=== PATIENT | female | born 1935 | race Caucasian/White ===

== ENCOUNTER 2016-06-02 10:20 | Emergency (ER) | payer OTHER ==
[~2016-06-02] VITALS: Ht 152.4 cm; Wt 79.3 kg
[~2016-06-02 10:20] MED LIST: ALPR-138 PO; ASPI81TA82 PO; ATEN1TAB73 PO; ATOR40TA PO; COUM2TAB PO; FOSA70TA PO; NITR0.4S SL; PERC5TAB12 PO; ULTR50TA PO
[2016-06-02 10:36] VITALS: PULSE 74; RESP 16; TEMP 98.4; O2SAT 97
[2016-06-02] MEDS ORDERED: ATEN25TA PO (11:00)
[2016-06-02] MEDS ORDERED: ASPI81CH CHEW (11:00)
[2016-06-02] MEDS ORDERED: FOSA70TA PO (11:00)
[2016-06-02] MEDS ORDERED: ALPR0.25 PO (11:00)
[2016-06-02] MEDS ORDERED: WARF4TAB51 PO (11:00)
[2016-06-02] MEDS ORDERED: ATOR40TA16 PO (11:00)
[2016-06-02] MEDS ORDERED: CALTTAB PO (11:02)
--- NOTE | 2016-06-02 11:09 | PD ---
HPI Chief Complaint: Fall Time Seen by Provider: 10:49 Travel History International Travel<30 days: No Contact w/Intl Traveler<30days: No Traveled to known affect area: No History of Present Illness HPI This patient complains of wrist pain. One hour ago she tripped and fell. She caught herself on a left outstretched wrist. Worse with movement. She also struck her head on the carpet. But she has no LOC and no headache and no neck pain. She does take Coumadin but is not having any headache or neurologic symptoms. PFSH Past Medical History Hx Anticoagulant Therapy: Yes (coumadin) Anxiety: Yes Cardiovascular Problems: Yes (htn on meds, stents x 2) High Cholesterol: Yes Cerebrovascular Accident: Yes (x3) Coronary Artery Disease: Yes Diminished Hearing: No GERD: Yes Hypertension: Yes Immunizations Current: Yes (H1N1) Renal Failure: Yes (STAGE III CKD) Tetanus Vaccination: Unknown ?: Not Past Surgical History Appendectomy: Yes Cardiac Surgery: Yes (stents x 2) Hysterectomy: Yes Social History Alcohol Use: No Tobacco Use: No Substance Use: No Allergies-Medications (Allergen,Severity, Reaction): Coded Allergies: No Known Allergies (Verified , 06/02/16) Reported Meds & Prescriptions Reported Meds & Active Scripts Active Reported Caltrate 600+D (Calcium Carbonate-Cholecalciferol) 600-800 Mg-Unit Tab 1 Tab PO BID Atorvastatin (Atorvastatin Calcium) 40 Mg Tab 40 Mg PO HS Atenolol 25 Mg Tab 25 Mg PO BID Aspirin 81 Mg Chew 81 Mg CHEW DAILY Alprazolam 0.25 Mg Tab 0.25 Mg PO Q8H PRN Fosamax (Alendronate Sodium) 70 Mg Tab 70 Mg PO Q7D Warfarin 2 Mg Tab 2 Mg PO DAILY Review of Systems General / Constitutional: No: Fever HENT: No: Headaches Cardiovascular: No: Chest Pain or Discomfort Respiratory: No: Cough Physical Exam Narrative NEUROLOGICAL: Awake and alert. Pupils are equal round and reactive. Motor and sensory grossly within normal limits. Five out of 5 muscle strength in all muscle groups. Normal speech. SKIN: Inspection shows no rash or ulcers. Palpation shows no induration or nodules. Head: No abrasion or contusion seen. Has some dried blood in the nares Left wrist: Some minor swelling and tenderness at the left wrist. Neurovascularly intact. No open wound Data Data Last Documented VS Vital Signs Date Time Temp Pulse Resp B/P Pulse Ox O2 Delivery O2 Flow Rate FiO2 06/02/16 10:43 16 97 Room Air 06/02/16 10:36 98.4 74 Orders Wrist, Complete (Dru2cns) (06/02/16 ) Splint Or Brace Apply/Monitor (06/02/16 11:49) MDM Medical Decision Making Medical Screen Exam Complete: Yes Emergency Medical Condition: Yes Medical Record Reviewed: Yes Differential Diagnosis Wrist fracture, wrist dislocation, contusion Narrative Course I have reviewed the patient's electronic medical record. I reviewed her left wrist x-rays which show a nondisplaced distal radius fracture. I placed her in a left sugar tong splint and sling She will ice and elevate and follow with radiologist Pain medicine written Patient is neurologically intact without headache. No indication for emergent CT scanning. We discussed head injury precautions which she will follow. Diagnosis Primary Impression: Distal radius fracture, left Qualified Code: S52.532A - Closed Colles' fracture of left radius, initial encounter Additional Instructions: The patient was advised to follow up with orthopedist and return if they worsen. The patient was warned about potential sedation for the medications they will receive on prescription. Ice and elevate left wrist and wear splint Med/Other Pt SpecificInfo: Prescription(s) given Scripts Oxycodone-Acetaminophen (Percocet)5-325 mg Tab1 Tab PO Q6H PRN (PAIN) #20 TAB Ref 0 Prov:Zachariah Beckman MD 06/02/16 Disposition: 01 DISCHARGE HOME Condition: Stable Zachariah Beckman MD Jun 02, 2016 11:09
--- NOTE | 2016-06-02 11:41 | RADHPO ---
EXAM DATE/TIME: 06/02/2016 11:17 [facility] COMPARISON: KNEE LEFT LTD (1 OR 2VWS), October 18, 2014, 21:45. INDICATIONS : Fell. Complains of pain on lateral side of left wrist. MEDICAL HISTORY : None. SURGICAL HISTORY : None. ENCOUNTER: Initial ACUITY: 1 day PAIN SCORE: 7/10 LOCATION: Left wrist FINDINGS: The examination demonstrates a nondisplaced fracture through the distal aspect of the right radius. T here is no intra-articular extension. The carpus is intact. There degenerative changes in the carpal/metacarpal joint at the base of the thumb. CONCLUSION: 1. Nondisplaced fracture in the distal left radius. Dawson Boyer MD on June 02, 2016 at 11:38 Board Certified Radiologist. This report was verified electronically.
[2016-06-02] MEDS ORDERED: PERC5TAB12 PO (11:51)
[2016-06-02 12:07] VITALS: BP 167/71
== END 2016-06-02 12:26 | disposition home or self-care (01) ==
LOC: PHED 10:20
DX: S52.532A Colles' fracture of left radius, initial encounter for closed fracture (principal); W01.0XXA Fall on same level from slipping, tripping and stumbling without subsequent striking against object, initial encounter
CPT/HCPCS: 29125; 73110

== ENCOUNTER 2017-01-24 18:47 | Emergency (ER) | payer OTHER ==
[~2017-01-24] VITALS: Ht 152.4 cm; Wt 77.0 kg
[~2017-01-24 18:47] MED LIST changes: -ALPR-138 PO; +ALPR0.25 PO; +ASPI81CH CHEW; -ASPI81TA82 PO; -ATEN1TAB73 PO; +ATEN25TA PO; -ATOR40TA PO; +ATOR40TA16 PO; +CALTTAB PO; -COUM2TAB PO; -NITR0.4S SL; -ULTR50TA PO; +WARF4TAB51 PO
[2017-01-24 18:52] VITALS: PULSE 66; RESP 16; TEMP 98.4; O2SAT 95
[2017-01-24] MEDS ORDERED: MULT-154 PO (20:49)
[2017-01-24] MEDS ORDERED: CALC1TAB87 PO (20:49)
[2017-01-24] MEDS ORDERED: TRAM-388 PO (20:49)
[2017-01-24] MEDS ORDERED: TURM500C4 PO (20:50)
[2017-01-24 20:58] VITALS: BP 184/83; PULSE 67; RESP 16; O2SAT 94
--- NOTE | 2017-01-24 21:14 | PD ---
HPI Chief Complaint: Headache Time Seen by Provider: 20:57 Travel History International Travel<30 days: No Contact w/Intl Traveler<30days: No Traveled to known affect area: No History of Present Illness HPI 81-year-old female complains of headache. Patient states that headache started about 2 days ago and has been persistent since then. Patient states headache aching headache diffuse over the head. Patient denies any visual change. Patient denies any neck pain. Patient denies any chest pain or shortness of breath. Patient denies abdominal pain. Patient denies any nausea vomiting diarrhea. Patient's daughter states the patient has been more confused for the past 2 days. Patient has history of hypertension, status post CVA, borderline diabetes. Patient is taking her medications herself daily. Patient's daughter is not sure patient is taking the medications appropriately. Patient has right- sided facial weakness after the previous stroke. Patient's daughter states that is not new now. Patient's daughter states that no change in medication recently. Patient denies any fever chills. Patient denies any coughing congestion. PFSH Past Medical History Hx Anticoagulant Therapy: Yes (coumadin) Anemia: Yes Arthritis: Yes Anxiety: Yes Cardiac Catheterization: Yes Cardiovascular Problems: Yes (htn on meds, stents x 2) High Cholesterol: Yes Cerebrovascular Accident: Yes (x3) Coronary Artery Disease: Yes Diabetes: Yes (BORDERLINE, NO MEDS) Patient Takes Glucophage: No Diminished Hearing: No GERD: Yes Hypertension: Yes Musculoskeletal: Yes (osteoporosis) Immunizations Current: Yes (H1N1) Renal Failure: Yes (STAGE III CKD) Tetanus Vaccination: Unknown ?: Not Menopausal: Yes : 6 Para: 5 Miscarriage: 1 Tubal Ligation: Yes (?) Past Surgical History Appendectomy: Yes Cardiac Surgery: Yes (stents x 2) Coronary Stent: Yes (X2) Eye Surgery: Yes (CATARACT) Hysterectomy: Yes Tonsillectomy: Yes Social History Alcohol Use: No Tobacco Use: No Substance Use: No Allergies-Medications (Allergen,Severity, Reaction): Coded Allergies: No Known Allergies (Verified , 01/24/17) Reported Meds & Prescriptions Reported Meds & Active Scripts Active Reported Turmeric (Turmeric Root Extract) 500 Mg Capsule 1 Cap PO DAILY Calcium 600 with Vitamin D (Calcium Carbonate-Cholecalciferol) 600-400 mg-Unit Tab 2 Tab PO HS Tramadol-Acetaminophen 37.5-325 mg Tab 1 Tab PO BID Daily Multivitamin with Iron (Multivitamin with Iron) 1 Each Tablet 1 Tab PO DAILY Atorvastatin (Atorvastatin Calcium) 40 Mg Tab 40 Mg PO HS Atenolol 25 Mg Tab 25 Mg PO BID Aspirin 81 Mg Chew 81 Mg CHEW DAILY Alprazolam 0.25 Mg Tab 0.25 Mg PO Q8H PRN Fosamax (Alendronate Sodium) 70 Mg Tab 70 Mg PO Q7D Warfarin 2 Mg Tab 2 Mg PO DAILY Review of Systems General / Constitutional: No: Fever Eyes: No: Visual changes HENT: Positive: Headaches Cardiovascular: No: Chest Pain or Discomfort Respiratory: No: Shortness of Breath Gastrointestinal: No: Abdominal Pain Genitourinary: No: Dysuria Musculoskeletal: No: Pain Skin: No Rash Neurologic: No: Weakness Psychiatric: No: Depression Endocrine: No: Polydipsia Hematologic/Lymphatic: No: Easy Bruising Physical Exam Narrative GENERAL: Well-nourished, well-developed patient. SKIN: Focused skin assessment warm/dry. HEAD: Normocephalic. EYES: No scleral icterus. No injection or drainage. NECK: Supple, trachea midline. No JVD or lymphadenopathy. CARDIOVASCULAR: Regular rate and rhythm without murmurs, gallops, or rubs. RESPIRATORY: Breath sounds equal bilaterally. No accessory muscle use. GASTROINTESTINAL: Abdomen soft, non-tender, nondistended. MUSCULOSKELETAL: No cyanosis, or edema. BACK: Nontender without obvious deformity. No CVA tenderness. Neurologic exam: Patient is awake and alert oriented to place and person. Patient moves all extremity well. No obvious focal neurological deficit. Mild drooping of the right corner of the mouth which is not new since previous stroke. Data Data Last Documented VS Vital Signs Date Time Temp Pulse Resp B/P (MAP) Pulse Ox O2 Delivery O2 Flow Rate FiO2 01/24/17 21:50 65 18 181/87 (118) 97 Room Air 01/24/17 18:52 98.4 Orders Orders Electrocardiogram (01/24/17 21:08) Complete Blood Count With Diff (01/24/17 21:08) Comprehensive Metabolic Panel (01/24/17 21:08) Troponin I (01/24/17 21:08) Prothrombin Time / Inr (Pt) (01/24/17 21:08) Act Partial Throm Time (Ptt) (01/24/17 21:08) Urinalysis - C+S If Indicated (01/24/17 21:08) Chest, Single Ap (01/24/17 21:08) Ct Brain W/O Iv Contrast(Rout) (01/24/17 21:08) Iv Access Insert/Monitor (01/24/17 21:08) Ecg Monitoring (01/24/17 21:08) Oximetry (01/24/17 21:08) Labs Laboratory Tests Test 01/24/17 21:20 01/24/17 21:35 White Blood Count 6.2 TH/MM3 Red Blood Count 4.56 MIL/MM3 Hemoglobin 14.0 GM/DL Hematocrit 41.9 % Mean Corpuscular Volume 91.9 FL Mean Corpuscular Hemoglobin 30.6 PG Mean Corpuscular Hemoglobin Concent 33.3 % Red Cell Distribution Width 13.1 % Platelet Count 182 TH/MM3 Mean Platelet Volume 9.2 FL Neutrophils (%) (Auto) 72.4 % Lymphocytes (%) (Auto) 16.4 % Monocytes (%) (Auto) 7.9 % Eosinophils (%) (Auto) 2.4 % Basophils (%) (Auto) 0.9 % Neutrophils # (Auto) 4.5 TH/MM3 Lymphocytes # (Auto) 1.0 TH/MM3 Monocytes # (Auto) 0.5 TH/MM3 Eosinophils # (Auto) 0.1 TH/MM3 Basophils # (Auto) 0.1 TH/MM3 CBC Comment DIFF FINAL Differential Comment Prothrombin Time 26.1 SEC Prothromb Time International Ratio 2.3 RATIO Activated Partial Thromboplast Time 34.8 SEC Blood Urea Nitrogen 25 MG/DL Creatinine 1.00 MG/DL Random Glucose 102 MG/DL Total Protein 6.8 GM/DL Albumin 3.8 GM/DL Calcium Level 8.8 MG/DL Alkaline Phosphatase 63 U/L Aspartate Amino Transf (AST/SGOT) 24 U/L Alanine Aminotransferase (ALT/SGPT) 21 U/L Total Bilirubin 0.5 MG/DL Sodium Level 138 MEQ/L Potassium Level 4.3 MEQ/L Chloride Level 103 MEQ/L Carbon Dioxide Level 28.5 MEQ/L Anion Gap 7 MEQ/L Estimat Glomerular Filtration Rate 53 ML/MIN Troponin I LESS THAN 0.02 NG/ML Urine Color YELLOW Urine Turbidity MOD Urine pH 7.0 Urine Specific [place] 1.018 Urine Protein NEG mg/dL Urine Glucose (UA) NEG mg/dL Urine Ketones NEG mg/dL Urine Occult Blood NEG Urine Nitrite NEG Urine Bilirubin NEG Urine Leukocyte Esterase TRACE Urine WBC 0-2 /hpf Urine Squamous Epithelial Cells 0-5 /hpf Urine Amorphous Sediment LARGE Urine Hyaline Casts 0-2 /lpf Urine Mucus FEW /lpf Microscopic Urinalysis Comment CULT NOT INDICATED MDM Medical Decision Making Medical Screen Exam Complete: Yes Emergency Medical Condition: Yes Interpretation(s) 22:02 PM. CBC within normal limit. CMP within normal limit. Cardiac enzymes are normal. INR 2.3. UA is negative. Last Impressions Chest X-Ray 01/24/[id number] Signed Impressions: Service Date/Time: Thursday, January 24, 2017 21:29 - CONCLUSION: 1. No acute findings. Noam Herrera MD 22:[address] scan of brain showed remote infarct left MCA distribution and remote small infarct right cerebellar hemisphere. No acute process. Left maxillary sinus disease. Differential Diagnosis Differential diagnosis including acute exacerbation of mental confusion, TIA, CVA, electrolyte imbalance, dehydration, pneumonia, UTI. Narrative Course 81-year-old female with headache and increasing mental confusion for the past 2 days. Doxycycline 100 mg by mouth given. Diagnosis Primary Impression: Cephalgia Qualified Codes: R51 - Headache Additional Impression: Sinusitis Qualified Codes: J01.00 - Acute maxillary sinusitis, unspecified Patient Instructions: General Instructions Additional Instructions: Doxycycline as directed. Follow-up with personal physician. Return if worse. Tylenol for headache. Check INR every 2-3 days while on doxycycline. Med/Other Pt SpecificInfo: Prescription(s) given Scripts Doxycycline Hyclate (Doxycycline Hyclate) 100 Mg Cap 100 MG PO BID for Infection, #20 CAP 0 Refills Prov: Thomas Polanco MD 01/24/17 Disposition: 01 DISCHARGE HOME Condition: Stable Thomas Polanco MD Jan 24, 2017 21:14
[2017-01-24 21:29] LABS: AUTOMATED NEUTROPHIL # 4.5 TH/MM3 (1.8-7.7); BASOPHIL # 0.1 TH/MM3 (0-0.2); BASOPHIL % 0.9 % (0.0-2.0); EOSINOPHIL # 0.1 TH/MM3 (0-0.4); EOSINOPHIL % 2.4 % (0.0-4.0); HEMATOCRIT 41.9 % (35.0-46.0); HEMO FLAGS DIFF FINAL; LYMPH % 16.4 % (9.0-44.0); MEAN CELL VOLUME 91.9 FL (80.0-100.0); MEAN CORPUSCULAR HEMOGLOBIN 30.6 PG (27.0-34.0); MEAN CORPUSCULAR HGB CONC 33.3 % (32.0-36.0); MONO % 7.9 % (0.0-8.0); NEUT % 72.4 % (16.0-70.0); PLATELET COUNT 182 TH/MM3 (150-450); RED BLOOD COUNT 4.56 MIL/MM3 (4.00-5.30); RED CELL DISTRIBUTION WIDTH 13.1 % (11.6-17.2); WHITE BLOOD COUNT 6.2 TH/MM3 (4.0-11.0)
[2017-01-24 21:37] LABS: CHLORIDE 103 MEQ/L (98-107); POTASSIUM 4.3 MEQ/L (3.5-5.1); SODIUM (NA) 138 MEQ/L (136-145)
[2017-01-24 21:40] LABS: ANION GAP 7 MEQ/L (5-15); BICARBONATE 28.5 MEQ/L (21.0-32.0); BLOOD UREA NITROGEN 25 MG/DL (7-18)
[2017-01-24 21:42] LABS: BLOOD, URINE NEG (NEG); GLUCOSE,URINE NEG (NEG); KETONE, URINE NEG (NEG); NITRITE,URINE NEG (NEG)
[2017-01-24 21:42] LABS: APTT (PATIENT) 34.8 SEC (24.3-30.1); INTERNATIONAL NORMALIZED RATIO 2.3 RATIO; PROTHROMBIN TIME - PATIENT 26.1 SEC (9.8-11.6)
[2017-01-24 21:43] LABS: ALT (GPT) 21 U/L (10-53); AST (GOT) 24 U/L (15-37)
[2017-01-24 21:44] LABS: GLOMERULAR FILTRATION RATE 53 ML/MIN (>89)
[2017-01-24 21:45] LABS: TOTAL BILIRUBIN ADULT 0.5 MG/DL (0.2-1.0)
[2017-01-24 21:46] LABS: ALKALINE PHOSPHATASE 63 U/L (45-117)
[2017-01-24 21:50] VITALS: BP 181/87; PULSE 65; RESP 18; O2SAT 97
[2017-01-24 21:50] LABS: URINE COLOR YELLOW (YELLW/STRAW)
[2017-01-24 21:51] LABS: MUCUS URINE FEW /lpf (OCC); SQUAMOUS EPITHELIAL CELL URINE 0-5 /hpf (0-5)
[2017-01-24 21:52] LABS: COMMENT (UR) CULT NOT INDICATED; CULTURE IF INDICATED CULT NOT INDICATED; HYALINE CAST, URINE 0-2 /lpf (RARE); WBC, URINE 0-2 /hpf (0-5)
--- NOTE | 2017-01-24 22:08 | RADRPT ---
EXAM DATE/TIME: 01/24/2017 21:29 [facility] COMPARISON: No previous studies available for comparison. INDICATIONS : Shortness of breath. MEDICAL HISTORY : None. SURGICAL HISTORY : None. ENCOUNTER: Initial ACUITY: 1 day PAIN SCORE: 0/10 LOCATION: Bilateral chest FINDINGS: A single view of the chest demonstrates mild cardiac enlargement. Tortuous and atherosclerotic aorta. No focal consolidation. No effusion. No pneumothorax. CONCLUSION: 1. No acute findings. Noam Herrera MD on January 24, 2017 at 22:06 Board Certified Radiologist. This report was verified electronically.
--- NOTE | 2017-01-24 22:17 | RADRPT ---
EXAM DATE/TIME: 01/24/2017 21:37 [facility] COMPARISON: No previous studies available for comparison. INDICATIONS : Prior history of CVA. Confusion and headache. RADIATION DOSE: 57.98 CTDIvol (mGy) MEDICAL HISTORY : Cerebrovascular disease. Hypertension. SURGICAL HISTORY : None. ENCOUNTER: Initial ACUITY: 2 days PAIN SCALE: 8/10 LOCATION: cranial TECHNIQUE: Multiple contiguous axial images were obtained of the head. Using automated exposure control and adj ustment of the mA and/or kV according to patient size, radiation dose was kept as low as reasonably a chievable to obtain optimal diagnostic quality images. DICOM format image data is available electro nically for review and comparison. FINDINGS: There is extensive mucosal thickening in the left maxillary sinus. Remote infarct noted in the left M CA distribution and also right cerebellar hemisphere. No acute mass, hemorrhage or shift. No hydrocep halus. CONCLUSION: 1. Remote infarct left MCA distribution and remote small infarct right cerebellar hemisphere. No acut e intracranial abnormalities. 2. Left maxillary sinus disease. Noam Herrera MD on January 24, 2017 at 22:14 Board Certified Radiologist. This report was verified electronically.
[2017-01-24] MEDS ORDERED: DOXY100C PO (22:29)
[2017-01-24] MEDS ORDERED: DOXYCYCLINE HYCLATE 100 MG CAP PO ONE (22:30)
[2017-01-24 22:42] VITALS: BP 167/81
--- NOTE | 2017-01-25 13:24 | EKG ---
Date Performed: 01/24/2017 Time Performed: 21:26:36 PTAGE: 81 years EKG: Sinus rhythm MARKED LEFT AXIS DEVIATION INCOMPLETE RIGHT BUNDLE BRANCH BLOCK POSSIBLE LATERAL MYOCARDIAL INFARCTI ON ABNORMAL ECG NO PREVIOUS TRACING DOCTOR: Kaur Santana Interpretating Date/Time 01/25/2017 13:23:19
== END 2017-01-24 22:46 | disposition home or self-care (01) ==
LOC: PHED 18:47
DX: R51 Headache (principal); J01.00 Acute maxillary sinusitis, unspecified; R41.0 Disorientation, unspecified; R94.31 Abnormal electrocardiogram [ECG] [EKG]; I12.9 Hypertensive chronic kidney disease with stage 1 through stage 4 chronic kidney disease, or unspecified chronic kidney disease; N18.3 Chronic kidney disease, stage 3 (moderate); R73.03 Prediabetes; E78.00 Pure hypercholesterolemia, unspecified; Z79.01 Long term (current) use of anticoagulants; Z86.2 Personal history of diseases of the blood and blood-forming organs and certain disorders involving the immune mechanism; Z87.39 Personal history of other diseases of the musculoskeletal system and connective tissue; Z86.59 Personal history of other mental and behavioral disorders; Z86.79 Personal history of other diseases of the circulatory system; Z87.19 Personal history of other diseases of the digestive system
CPT/HCPCS: 70450; 71010; 80053; 81001; 84484; 85025; 85610; 85730; 93005; 99285

== ENCOUNTER 2017-03-27 20:15 | Observation (INO) | payer OTHER ==
[~2017-03-27] VITALS: Ht 152.4 cm; Wt 74.9 kg
[~2017-03-27 20:15] MED LIST changes: +ASPI-516 CHEW; -ASPI81CH CHEW; +CALC1TAB87 PO; -CALTTAB PO; +DOXY100C PO; +MULT-154 PO; -PERC5TAB12 PO; +TRAM-388 PO; +TURM500C7 PO
[2017-03-27] MEDS ORDERED: SODIUM CHLOR 0.9% 1000 ML INJ 1,000 ML IV ONE ×2 (20:19→21:30)
[2017-03-27 20:20] VITALS: BP 170/82; PULSE 72; RESP 24; TEMP 98.3; O2SAT 93
[2017-03-27] MEDS ORDERED: LORazepam 2 MG/ML VIAL IVS ONE (20:30)
[2017-03-27] MEDS ORDERED: SODIUM CHLORIDE 0.9% FLUSH 10 ML FLUSH IVF PRN (20:30)
--- NOTE | 2017-03-27 20:43 | PD ---
HPI Chief Complaint: seizure Time Seen by Provider: 20:19 Travel History International Travel<30 days: No Contact w/Intl Traveler<30days: No Traveled to known affect area: No History of Present Illness HPI 81-year-old female presents to the emergency department by private transportation in the care of her daughter after reporting that she needed to go to the hospital and then immediately deteriorating into a generalized tonic- clonic seizure while being driven to the hospital according to the daughter. Patient's had previous seizure 3 in the past and left with some residual weakness as well as right facial droop. Patient is currently prescribed warfarin. There was no fall or injury. Daughter states that patient was well all day yesterday all day today and had just finished eating a meal out at dinner and walking to the car as symptoms began. Patient's had no recent febrile illness. Daughter estimates seizure activity lasted for at least 1 minute. Patient was driven directly to the ambulance bay where paramedics happened to be parked and they noted that she was actively seizing upon arrival to the ambulance bay. Patient was placed on EMS stretcher postictal with sonorous respirations and palpable pulse. Patient is brought into the emergency department and blood sugar was obtained and found to be 130. Patient is placed on monitor and found to be in sinus rhythm with O2 saturations 96%. Family at bedside. PFSH Past Medical History Narrative Medical Warfarin therapy CVA CAD diabetes hypertension dyslipidemia anemia arthritis chronic kidney disease appendectomy cardiac catheter with stent: No tobacco use no alcohol use; nursing notes reviewed Hx Anticoagulant Therapy: Yes (coumadin) Anemia: Yes Arthritis: Yes Anxiety: Yes Cardiac Catheterization: Yes Cardiovascular Problems: Yes (htn on meds, stents x 2) High Cholesterol: Yes Cerebrovascular Accident: Yes (x3) Coronary Artery Disease: Yes Diabetes: Yes (BORDERLINE, NO MEDS) Diminished Hearing: No GERD: Yes Hypertension: Yes Musculoskeletal: Yes (osteoporosis) Immunizations Current: Yes (H1N1) Renal Failure: Yes (STAGE III CKD) Menopausal: Yes : 6 Para: 5 Miscarriage: 1 Tubal Ligation: Yes (?) Past Surgical History Appendectomy: Yes Cardiac Surgery: Yes (stents x 2) Coronary Stent: Yes (X2) Eye Surgery: Yes (CATARACT) Hysterectomy: Yes Tonsillectomy: Yes Social History Alcohol Use: No Tobacco Use: No Substance Use: No Allergies-Medications (Allergen,Severity, Reaction): Coded Allergies: No Known Allergies (Verified Allergy, Unknown, 03/27/17) Reported Meds & Prescriptions Reported Meds & Active Scripts Active Reported Turmeric (Turmeric Root Extract) 500 Mg Capsule 1 Cap PO DAILY Calcium 600 with Vitamin D (Calcium Carbonate-Cholecalciferol) 600-400 mg-Unit Tab 2 Tab PO HS Tramadol-Acetaminophen 37.5-325 mg Tab 1 Tab PO BID Daily Multivitamin with Iron (Multivitamin with Iron) 1 Each Tablet 1 Tab PO DAILY Atorvastatin (Atorvastatin Calcium) 40 Mg Tab 40 Mg PO HS Atenolol 25 Mg Tab 25 Mg PO BID Aspirin 81 Mg Chew 81 Mg CHEW DAILY Alprazolam 0.25 Mg Tab 0.25 Mg PO Q8H PRN Fosamax (Alendronate Sodium) 70 Mg Tab 70 Mg PO Q7D Warfarin 2 Mg Tab 2 Mg PO DAILY Review of Systems Except as stated in HPI: all other systems reviewed are Neg Physical Exam Narrative GENERAL: Well-developed well-nourished female post ictal with sonorous respirations. SKIN: Warm and dry. HEAD: Atraumatic. Normocephalic. EYES: Pupils equal and round. No scleral icterus. No injection or drainage. ENT: No nasal bleeding or discharge. Mucous membranes pink and moist. Airway is patent. Tongue trauma noted. NECK: Trachea midline. No JVD. No midline bony step-off. CARDIOVASCULAR: Regular rate and rhythm. RESPIRATORY: No accessory muscle use. Clear to auscultation. Breath sounds equal bilaterally. GASTROINTESTINAL: Abdomen soft, non-tender, nondistended. Hepatic and splenic margins not palpable. MUSCULOSKELETAL: Extremities without clubbing, cyanosis, or edema. No obvious deformities. NEUROLOGICAL: Postictal, obtunded, gcs 11. No obvious cranial nerve deficits except right facial droop noted. PSYCHIATRIC: Appropriate mood and affect; insight and judgment normal. Data Data Last Documented VS Vital Signs Date Time Temp Pulse Resp B/P (MAP) Pulse Ox O2 Delivery O2 Flow Rate FiO2 03/27/17 21:15 75 18 138/75 (96) 98 Nasal Cannula 03/27/17 20:40 4.00 03/27/17 20:20 98.3 Orders Orders Complete Blood Count With Diff (03/27/17 20:19) Alcohol (Ethanol) (03/27/17 20:19) Blood Culture (03/27/17 20:19) Electrocardiogram (03/27/17 ) Ct Brain W/O Iv Contrast(Rout) (03/27/17 ) Blood Glucose (03/27/17 20:19) Ecg Monitoring (03/27/17 20:19) Iv Access Insert/Monitor (03/27/17 20:19) Oximetry (03/27/17 20:19) Oxygen Administration (03/27/17 20:19) Comprehensive Metabolic Panel (03/27/17 20:19) Sodium Chlor 0.9% 1000 Ml Inj (Ns 1000 M (03/27/17 20:19) Sodium Chloride 0.9% Flush (Ns Flush) (03/27/17 20:30) Lorazepam Inj (Ativan Inj) (03/27/17 20:30) Ua Includes Microscopic (03/27/17 20:19) Urine Culture (03/27/17 20:19) Fosphenytoin Inj (Cerebyx Inj) (03/27/17 20:45) Magnesium (Mg) (03/27/17 20:19) Troponin I (03/27/17 20:19) Act Partial Throm Time (Ptt) (03/27/17 20:19) Prothrombin Time / Inr (Pt) (03/27/17 20:19) Type And Screen (03/27/17 20:19) Ammonia (03/27/17 20:44) Lactic Acid (03/27/17 20:44) Sodium Chlor 0.9% 1000 Ml Inj (Ns 1000 M (03/27/17 21:30) Ceftriaxone Inj (Rocephin Inj) (03/27/17 21:30) Aspirin Chew (Aspirin Chew) (03/27/17 21:30) Eeg Study (03/27/17 ) Mri Brain W/O Contrast (03/27/17 ) Consult Neurology (03/27/17 ) Lorazepam Inj (Ativan Inj) (03/27/17 22:00) Place In Observation (03/27/17 ) Vital Signs (Adult) Q4H (03/27/17 21:56) Activity Oob With Assistance (03/27/17 21:56) Intake + Output JO.QSHIFT (03/27/17 21:56) Sodium Chlor 0.9% 1000 Ml Inj (Ns 1000 M (03/27/17 21:56) Sodium Chloride 0.9% Flush (Ns Flush) (03/27/17 22:00) Sodium Chloride 0.9% Flush (Ns Flush) (03/28/17 09:00) Ondansetron Inj (Zofran Inj) (03/27/17 22:00) Comprehensive Metabolic Panel (03/28/17 06:00) Complete Blood Count With Diff (03/28/17 06:00) Pt Request For Service (03/27/17 21:56) Pharmacologic Contraindication (03/27/17 21:56) Acetaminophen (Tylenol) (03/27/17 22:00) Acetamin-Hydrocod 325-5 Mg ([place] 5-325 (03/27/17 22:00) Acetamin-Hydrocod 325-10 Mg ([place] 10-32 (03/27/17 22:00) Docusate Sodium-Senna (Delores-Colace) (03/28/17 09:00) Magnesium Hydroxide Liq (Milk Of Magnesi (03/27/17 22:00) Sennosides (Senokot) (03/27/17 22:00) Bisacodyl Supp (Dulcolax Supp) (03/27/17 22:00) Lactulose Liq (Lactulose Liq) (03/27/17 22:00) Ceftriaxone Inj (Rocephin Inj) (03/28/17 22:00) Neuro Checks Q4H (03/27/17 21:56) Admit Order (Ed Use Only) (03/27/17 ) F[employer] Truck [employer] / Telemetry JO.Q8H (03/27/17 21:59) Diet Heart Healthy (03/28/17 Breakfast) Activity Bed Rest (03/27/17 21:59) Notify Dr: Other (03/27/17 21:59) Labs Laboratory Tests Test 03/27/17 20:44 03/27/17 20:55 White Blood Count 9.7 TH/MM3 Red Blood Count 4.62 MIL/MM3 Hemoglobin 14.0 GM/DL Hematocrit 43.7 % Mean Corpuscular Volume 94.5 FL Mean Corpuscular Hemoglobin 30.2 PG Mean Corpuscular Hemoglobin Concent 31.9 % Red Cell Distribution Width 14.6 % Platelet Count 242 TH/MM3 Mean Platelet Volume 9.4 FL Neutrophils (%) (Auto) 40.3 % Lymphocytes (%) (Auto) 44.5 % Monocytes (%) (Auto) 10.9 % Eosinophils (%) (Auto) 2.4 % Basophils (%) (Auto) 1.9 % Neutrophils # (Auto) 3.9 TH/MM3 Lymphocytes # (Auto) 4.3 TH/MM3 Monocytes # (Auto) 1.1 TH/MM3 Eosinophils # (Auto) 0.2 TH/MM3 Basophils # (Auto) 0.2 TH/MM3 CBC Comment DIFF FINAL Differential Comment Prothrombin Time 15.3 SEC Prothromb Time International Ratio 1.5 RATIO Activated Partial Thromboplast Time 27.3 SEC Blood Urea Nitrogen 28 MG/DL Creatinine 1.30 MG/DL Random Glucose 173 MG/DL Total Protein 7.8 GM/DL Albumin 4.3 GM/DL Calcium Level 10.1 MG/DL Magnesium Level 2.6 MG/DL Alkaline Phosphatase 76 U/L Aspartate Amino Transf (AST/SGOT) 40 U/L Alanine Aminotransferase (ALT/SGPT) 28 U/L Total Bilirubin 0.7 MG/DL Sodium Level 141 MEQ/L Potassium Level 3.6 MEQ/L Chloride Level 103 MEQ/L Carbon Dioxide Level 16.5 MEQ/L Anion Gap 22 MEQ/L Estimat Glomerular Filtration Rate 39 ML/MIN Lactic Acid Level 9.5 mmol/L Ammonia 54 MCMOL/L Troponin I LESS THAN 0.02 NG/ML Ethyl Alcohol Level LESS THAN 3 MG/DL Urine Color YELLOW Urine Turbidity CLEAR Urine pH 5.5 Urine Specific [place] 1.026 Urine Protein TRACE mg/dL Urine Glucose (UA) NEG mg/dL Urine Ketones 15 mg/dL Urine Occult Blood NEG Urine Nitrite NEG Urine Bilirubin NEG Urine Leukocyte Esterase NEG Urine RBC 0-3 /hpf Urine WBC 9-14 /hpf Urine WBC Clumps FEW Urine Squamous Epithelial Cells 6-8 /hpf Urine Calcium Oxalate Crystals FEW /hpf Urine Hyaline Casts 6-9 /lpf MDM Medical Decision Making Medical Screen Exam Complete: Yes Emergency Medical Condition: Yes Medical Record Reviewed: Yes Interpretation(s) ua: White blood cells clumped white blood cells culture indicated Last Impressions Head CT 03/27/17 0000 Signed Impressions: Service Date/Time: Monday, March 27, 2017 20:24 - CONCLUSION: 1. Stable appearance to old left MCA infarctions. 2. No acute findings in the brain. 3. Stable left maxillary sinus disease. Dale Jacome MD CBC & BMP Diagram 03/27/17 20:44 Total Protein 7.8, Albumin 4.3, Calcium Level 10.1, Magnesium Level 2.6 H, Alkaline Phosphatase 76, Aspartate Amino Transf (AST/SGOT) 40 H, Alanine Aminotransferase (ALT/SGPT) 28, Total Bilirubin 0.7 Vital Signs Date Time Temp Pulse Resp B/P (MAP) Pulse Ox O2 Delivery O2 Flow Rate FiO2 03/27/17 21:15 75 18 138/75 (96) 98 Nasal Cannula 03/27/17 20:40 98 Room Air 4.00 03/27/17 20:40 96 Nasal Cannula 2.00 03/27/17 20:20 98.3 72 24 170/82 (111) 93 Differential Diagnosis New-onset seizure, intracranial bleed, CVA, sepsis, arrhythmia Narrative Course Patient placed on lath tier with continuous pulse oximetry IV access obtained bedside glucose 1:30 monitor shows sinus rhythm blood pressure stable jaw thrust performed to maintain oxygenation supplemental oxygen applied patient with some symptom improvement of bilateral upper extremities; 1 g fosphenytoin ordered, IV fluids administered Patient sent for stat CT brain noncontrast @ 8:37 PM patient has returned from CT is starting to move all 4 extremities does note 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 Patient given Rocephin for abnormal urinalysis/UTI CT shows evidence of prior CVA no acute CVA identified and no bleed of consciousness progressively improving patient's case discussed with on-call neurologist Dr. Charles recommends no tPA, recommends giving aspirin and Coumadin subtherapeutic, is aware patient receiving fosphenytoin; recommends outpatient Dilantin 200 mg twice daily; recommends patient requires neurology consult to console him directly and call him notifying he will be consult. Case discussed with [facility] MD DR CURIEL will admit as obs to stepdown unit in view of new onset seizure Coumadin therapy history of stroke and positive urinary tract infection Critical Care Narrative Aggregate critical care time was 35 minutes. Time to perform other separately billable procedures was not included in the critical care time. My time did not include minutes spent treating any other patients simultaneously or on activities that did not directly contribute to the patient's treatment. The services I provided to this patient were to treat and/or prevent clinically significant deterioration that could result in: Status epilepticus, respiratory failure, I provided critical care services requiring my management, as noted below: Chart data review, documentation time, medication orders and management, vital sign assessments/reviewing monitor data, ordering and reviewing lab tests, ordering and interpreting/reviewing x-rays and diagnostic studies, care of the patient and discussion of the patient with the admitting physicians. Physician Communication Physician Communication @ 9:[address] Charles; dilantin po after complete bolus, not tpa candidate even if coumadin subtherapeutic; call placed to [facility] service Diagnosis Primary Impression: New onset seizure Additional Impressions: History of CVA (cerebrovascular accident) UTI (urinary tract infection) Admitting Information Admitting Physician Requests: Observation Layla Edgar MD Mar 27, 2017 20:43
[2017-03-27] MEDS ORDERED: FOSPHENYTOIN INJ 1,000 MGPE in SODIUM CHLORIDE 0.9% INJ 50 ML IV ONE (20:45)
--- NOTE | 2017-03-27 20:50 | RADRPT ---
EXAM DATE/TIME: 03/27/2017 20:24 CORRECTION Corrected on: March 27, 2017; typographical error in the impression was corrected. [place] COMPARISON: CT BRAIN W/O CONTRAST, January 24, 2017, 21:37. INDICATIONS : Status post seizure today. History of CVA. Patient unresponsive. RADIATION DOSE: 58.18 CTDIvol (mGy) ; Patient motion MEDICAL HISTORY : Cerebrovascular disease. Pt on Coumadin SURGICAL HISTORY : Non-responsive. ENCOUNTER: Initial ACUITY: 1 day PAIN SCALE: Non-responsive LOCATION: cranial TECHNIQUE: Multiple contiguous axial images were obtained of the head. Using automated exposure control and adj ustment of the mA and/or kV according to patient size, radiation dose was kept as low as reasonably a chievable to obtain optimal diagnostic quality images. DICOM format image data is available electro nically for review and comparison. FINDINGS: 3 separate acquisitions were performed due to patient motion. All areas of the brain are able to be evaluated. Old left MCA infarction similar to prior examination. There is stable smaller left MCA [employer] watershed infarction. No evidence of midline shift. The ventricles are normal in size. The right hemisphere is intact. The posterior fossa structures are intact. No evidence of acute hemorrhage. Opacification in the left maxillary sinus is similar to prior CT and January 2017. The calvarium is intact.. CONCLUSION: 1. Stable appearance to old left MCA infarctions. 2. No acute findings in the brain. 3. Stable left maxillary sinus disease. Dale Jacome MD on March 27, 2017 at 20:44 Board Certified Radiologist. This report was verified electronically. Dale Jacome MD on March 27, 2017 at 20:53 Board Certified Radiologist. This report was verified electronically.
[2017-03-27 20:54] LABS: AUTOMATED NEUTROPHIL # 3.9 TH/MM3 (1.8-7.7); BASOPHIL # 0.2 TH/MM3 (0-0.2); BASOPHIL % 1.9 % (0.0-2.0); EOSINOPHIL # 0.2 TH/MM3 (0-0.4); EOSINOPHIL % 2.4 % (0.0-4.0); HEMATOCRIT 43.7 % (35.0-46.0); LYMPH % 44.5 % (9.0-44.0); LYMPHOCYTE # 4.3 TH/MM3 (1.0-4.8); MEAN CELL VOLUME 94.5 FL (80.0-100.0); MEAN CORPUSCULAR HEMOGLOBIN 30.2 PG (27.0-34.0); MEAN CORPUSCULAR HGB CONC 31.9 % (32.0-36.0); MEAN PLATELET VOLUME 9.4 FL (7.0-11.0); MONO % 10.9 % (0.0-8.0); MONOCYTE # 1.1 TH/MM3 (0-0.9); NEUT % 40.3 % (16.0-70.0); PLATELET COUNT 242 TH/MM3 (150-450); RED BLOOD COUNT 4.62 MIL/MM3 (4.00-5.30); RED CELL DISTRIBUTION WIDTH 14.6 % (11.6-17.2); WHITE BLOOD COUNT 9.7 TH/MM3 (4.0-11.0)
[2017-03-27 21:06] LABS: CHLORIDE 103 MEQ/L (98-107); SODIUM (NA) 141 MEQ/L (136-145)
[2017-03-27 21:07] LABS: BILIRUBIN, URINE NEG (NEG); BLOOD, URINE NEG (NEG); GLUCOSE,URINE NEG (NEG); KETONE, URINE 15 mg/dL (NEG); NITRITE,URINE NEG (NEG); PH, URINE 5.5 (5.0-8.5); URINE LEUKOCYTE ESTERASE NEG (NEG)
[2017-03-27 21:09] LABS: CALCIUM 10.1 MG/DL (8.5-10.1)
[2017-03-27 21:10] LABS: ALBUMIN 4.3 GM/DL (3.4-5.0); BICARBONATE 16.5 MEQ/L (21.0-32.0); BLOOD UREA NITROGEN 28 MG/DL (7-18); GLUCOSE,RANDOM 173 MG/DL (74-106); MAGNESIUM 2.6 MG/DL (1.5-2.5)
[2017-03-27 21:11] LABS: INTERNATIONAL NORMALIZED RATIO 1.5 RATIO; PROTHROMBIN TIME - PATIENT 15.3 SEC (9.8-11.6)
[2017-03-27 21:13] LABS: ALT (GPT) 28 U/L (10-53); AST (GOT) 40 U/L (15-37); GLOMERULAR FILTRATION RATE 39 ML/MIN (>89)
[2017-03-27 21:14] LABS: TOTAL BILIRUBIN ADULT 0.7 MG/DL (0.2-1.0); TOTAL PROTEIN 7.8 GM/DL (6.4-8.2)
[2017-03-27 21:15] VITALS: BP 138/75; PULSE 75; RESP 18; O2SAT 98
[2017-03-27 21:16] LABS: ALKALINE PHOSPHATASE 76 U/L (45-117)
[2017-03-27 21:16] LABS: URINE COLOR YELLOW (YELLW/STRAW)
[2017-03-27 21:17] LABS: RBC, URINE 0-3 /hpf (0-3); WHITE BLOOD CELL CLUMPS FEW
[2017-03-27 21:18] LABS: CALCIUM OXALATE CRYSTALS,URINE FEW /hpf
[2017-03-27 21:18] LABS: TROPONIN I LESS THAN 0.02 NG/ML (0.02-0.05)
[2017-03-27] MEDS ORDERED: ASPIRIN 81 MG CHEW TAB CHEW ONE (21:30)
[2017-03-27] MEDS ORDERED: cefTRIAXone INJ 1,000 MG in SODIUM CHLORIDE 0.9% INJ 100 ML IV ONE (21:30)
[2017-03-27] MEDS ORDERED: MAGNESIUM HYDROXIDE SUSP 30 ML CUP PO PRN (22:00)
[2017-03-27] MEDS ORDERED: ACETAMINOPHEN/HYDROcodone 325 MG/10 MG TAB PO PRN (22:00)
[2017-03-27] MEDS ORDERED: ACETAMINOPHEN/HYDROcodone 325 MG/5 MG TAB PO PRN (22:00)
[2017-03-27] MEDS ORDERED: ACETAMINOPHEN 325 MG TAB PO PRN (22:00)
[2017-03-27] MEDS ORDERED: BISACODYL 10 MG SUPP RECTAL PRN (22:00)
[2017-03-27] MEDS ORDERED: LACTULOSE SYRUP 20 GM/30 ML CUP PO PRN (22:00)
[2017-03-27] MEDS ORDERED: LORazepam 2 MG/ML VIAL IV PUSH PRN (22:00)
[2017-03-27] MEDS ORDERED: SODIUM CHLORIDE 0.9% FLUSH 10 ML FLUSH IV FLUSH PRN (22:00)
[2017-03-27] MEDS ORDERED: SENNOSIDES 8.6 MG TAB PO PRN (22:00)
[2017-03-27] MEDS ORDERED: ONDANSETRON HCL 4 MG/2 ML VIAL IVP PRN (22:00)
[2017-03-27 22:15] VITALS: O2SAT 98
[2017-03-27 23:05] VITALS: BP 142/69; PULSE 78; RESP 16; O2SAT 98
[2017-03-27 23:21] VITALS: BP 158/77; PULSE 72; RESP 20; TEMP 98.7; O2SAT 94
[2017-03-27] MEDS: SODIUM CHLOR 0.9% 1000 ML INJ 1,000 ML IV SCH (23:57)
[2017-03-28] VITALS (13 sets, daily range): BP systolic 107–142; BP diastolic 57–78; PULSE 60–72; RESP 14–29; TEMP 97.5–98.6; O2SAT 94–98
[2017-03-28 07:02] LABS: AUTOMATED NEUTROPHIL # 4.7 TH/MM3 (1.8-7.7); BASOPHIL % 0.6 % (0.0-2.0); EOSINOPHIL % 0.6 % (0.0-4.0); HEMATOCRIT 35.8 % (35.0-46.0); HEMOGLOBIN 11.8 GM/DL (11.6-15.3); LYMPH % 17.6 % (9.0-44.0); LYMPHOCYTE # 1.1 TH/MM3 (1.0-4.8); MEAN CELL VOLUME 94.3 FL (80.0-100.0); MEAN CORPUSCULAR HEMOGLOBIN 31.1 PG (27.0-34.0); MONO % 9.2 % (0.0-8.0); MONOCYTE # 0.6 TH/MM3 (0-0.9); PLATELET COUNT 182 TH/MM3 (150-450); RED CELL DISTRIBUTION WIDTH 14.2 % (11.6-17.2); WHITE BLOOD COUNT 6.4 TH/MM3 (4.0-11.0)
[2017-03-28 07:09] LABS: CHLORIDE 107 MEQ/L (98-107); SODIUM (NA) 141 MEQ/L (136-145)
[2017-03-28 07:38] LABS: ALBUMIN 3.3 GM/DL (3.4-5.0); ALKALINE PHOSPHATASE 57 U/L (45-117); ALT (GPT) 19 U/L (10-53); AST (GOT) 24 U/L (15-37); BICARBONATE 26.3 MEQ/L (21.0-32.0); BLOOD UREA NITROGEN 19 MG/DL (7-18); CALCIUM 8.2 MG/DL (8.5-10.1); CREATININE 0.81 MG/DL (0.50-1.00); GLOMERULAR FILTRATION RATE 68 ML/MIN (>89); GLUCOSE,RANDOM 101 MG/DL (74-106); TOTAL BILIRUBIN ADULT 0.4 MG/DL (0.2-1.0); TOTAL PROTEIN 5.9 GM/DL (6.4-8.2)
[2017-03-28] MEDS ORDERED: FOSPHENYTOIN SODIUM 100 MG PE/2 ML VIAL IV SCH (09:00)
[2017-03-28] MEDS: SODIUM CHLOR 0.9% 1000 ML INJ 1,000 ML IV SCH ×2 (09:06→10:13)
[2017-03-28] MEDS: SODIUM CHLORIDE 0.9% FLUSH 10 ML FLUSH IV FLUSH SCH ×2 (09:06→19:57)
[2017-03-28] MEDS: DOCUSATE SODIUM 50 MG/SENNA 8.6 MG TAB PO SCH ×2 (09:07→19:56)
--- NOTE | 2017-03-28 10:58 | PD.CONS ---
History of Present Illness Service Neurology Consult Requested By er Reason for Consult seizure Primary Care Physician Dhara Sunshine Do, MD History of Present Illness 81-year-old female admitted with new-onset seizures. previous hx of left mca stroke 8 years ago with residual rt facial and rt sided weakness, uses an assistive device to ambulate with. on coumadin tx. inr 1.5. tramadol prn for pain. ct brain- old left mca stroke. speech improved and back to baseline per daughter at bedside. tolerating cerebryx. PFSH Past Medical History Narrative Medical left mca stroke CAD diabetes hypertension dyslipidemia anemia arthritis chronic kidney disease appendectomy cardiac catheter with stent: No tobacco use no alcohol use; nursing notes reviewed Past Surgical History Appendectomy: Yes Cardiac Surgery: Yes (stents x 2) Coronary Stent: Yes (X2) Eye Surgery: Yes (CATARACT) Hysterectomy: Yes Tonsillectomy: Yes Social History Alcohol Use: No Tobacco Use: No Substance Use: No Allergies-Medications (Allergen,Severity, Reaction): Coded Allergies: No Known Allergies (Verified Allergy, Unknown, 03/27/17) Reported Meds & Prescriptions Reported Meds & Active Scripts Active Reported Turmeric (Turmeric Root Extract) 500 Mg Capsule 1 Cap PO DAILY Calcium 600 with Vitamin D (Calcium Carbonate-Cholecalciferol) 600-400 mg-Unit Tab 2 Tab PO HS Tramadol-Acetaminophen 37.5-325 mg Tab 1 Tab PO BID Daily Multivitamin with Iron (Multivitamin with Iron) 1 Each Tablet 1 Tab PO DAILY Atorvastatin (Atorvastatin Calcium) 40 Mg Tab 40 Mg PO HS Atenolol 25 Mg Tab 25 Mg PO BID Aspirin 81 Mg Chew 81 Mg CHEW DAILY Alprazolam 0.25 Mg Tab 0.25 Mg PO Q8H PRN Fosamax (Alendronate Sodium) 70 Mg Tab 70 Mg PO Q7D Warfarin 2 Mg Tab 2 Mg PO DAILY Review of Systems Except as stated in HPI: all other systems reviewed are Neg Review of Systems All other ROS: ROS reviewed as documented in chart Past Family Social History Allergies: Coded Allergies: No Known Allergies (Verified Allergy, Unknown, 03/27/17) Active Ordered Medications Current Medications Medications (Trade) Dose Ordered Sig/Marisol Route Start Time Stop Time Status Last Admin (Ativan Inj) 1 mg Q5M PRN IV PUSH 03/27/17 22:00 Sodium Chloride 1,000 ml @ 100 mls/hr Q10H IV 03/27/17 21:56 03/28/17 10:13 (NS Flush) 2 ml UNSCH PRN IV FLUSH 03/27/17 22:00 (NS Flush) 2 ml BID IV FLUSH 03/28/17 09:00 03/28/17 09:06 (Zofran Inj) 4 mg Q6H PRN IVP 03/27/17 22:00 (Tylenol) 650 mg Q6H PRN PO 03/27/17 22:00 ([place] 5-325 Mg) 1 tab Q4H PRN PO 03/27/17 22:00 ([place] 10-325 Mg) 1 tab Q4H PRN PO 03/27/17 22:00 (Delores-Colace) 1 tab BID PO 03/28/17 09:00 03/28/17 09:07 (Milk Of Magnesia Liq) 30 ml Q12H PRN PO 03/27/17 22:00 (Senokot) 17.2 mg Q12H PRN PO 03/27/17 22:00 (Dulcolax Supp) 10 mg DAILY PRN RECTAL 03/27/17 22:00 (Lactulose Liq) 30 ml DAILY PRN PO 03/27/17 22:00 (Cerebyx Inj) 200 mgpe Q12HR IV 03/28/17 09:00 03/28/17 09:07 Exam I&O / VS Vital Signs Date Time Temp Pulse Resp B/P (MAP) Pulse Ox O2 Delivery O2 Flow Rate FiO2 03/28/17 08:00 98.4 68 29 96 03/28/17 07:10 97.5 60 29 121/69 (86) 95 03/28/17 04:00 68 03/28/17 04:00 98.6 70 24 129/66 (87) 94 03/28/17 03:10 68 17 107/67 (80) 94 03/28/17 02:10 70 28 117/63 (81) 96 03/28/17 01:10 66 14 111/57 (75) 96 03/28/17 00:10 68 03/28/17 00:10 68 27 126/78 (94) 95 03/27/17 23:21 72 03/27/17 23:21 98.7 72 20 158/77 (104) 94 03/27/17 23:06 03/27/17 23:05 78 16 142/69 (93) 98 Nasal Cannula 03/27/17 22:15 98 Nasal Cannula 2.00 03/27/17 21:15 75 18 138/75 (96) 98 Nasal Cannula 03/27/17 20:40 98 Room Air 4.00 03/27/17 20:40 96 Nasal Cannula 2.00 03/27/17 20:20 98.3 72 24 170/82 (111) 93 General: Alert and Oriented, No acute distress Eye: EOMI Respiratory: Non-labored respirations Neurologic: Alert, Oriented Psychiatric: Cooperative Exam Comments alert, pleasant, follows, mild dysfluency, eomi, rt lower facial weakness, mild rt spastic hemiparesis / Review/Management Diagnosis/Plan: (1) New onset seizure ICD Codes: R56.9 - Unspecified convulsions Status: Acute Plan: post-stroke seizure ?tramadol inducing sz recs eeg mri brain inr 2-2.5- defer to medical to adjust d/c aspirin once inr >2 STOP TRAMADOL dilantin p.t. eval ok for floor with tele d/c planning in am d/w pt/daughter (2) Chronic ischemic left MCA stroke ICD Codes: I69.30 - Unspecified sequelae of cerebral infarction Status: Chronic Plan: at baseline had stroke 8 years ago, tx'd in [place] per daughter (3) Benign hypertension Status: Chronic Josiah Charles MD Mar 28, 2017 10:58
--- NOTE | 2017-03-28 11:10 | HHI.HP ---
[facility] Service [place] [facility] Primary Care Physician Dhara Sunshine Do, MD Admission Diagnosis new onset seizure; h/o cva; uti Diagnoses: Chief Complaint: Seizure. Travel History International Travel<30 Days: No Contact w/Intl Traveler <30 Da: No Traveled to Known Affected Are: No History of Present Illness Ms. Garcia is a pleasant 81-year-old female with a history of coronary artery disease, stroke who presents to the emergency department on 03/27/2017 due to generalized tonic-clonic seizure activity. Yesterday she went to have dinner with her daughter. After dinner she felt of head pressure and subsequently apparently she had facial droop. She does not recall the details of the incident. Patient's daughter noted seizure activity. Paramedics noted that patient was actively seizing when they evaluated her. She has no history of seizure activities in the past. Blood sugar was 130. She denies any chest pain , shortness of breath, fever or chills. She denies any changes in bowel or bladder habits. Further discussion also reveals that patient takes warfarin regularly. However a few days ago she had nosebleed and she skipped taking warfarin one day. On arrival her INR was 1.5. She also takes aspirin 81mg Qday. Review of Systems Except as stated in HPI: all other systems reviewed are Neg Past Family Social History Past Medical History Coronary artery disease status post 2 stents Stroke 3 Hyperlipidemia Past Surgical History Appendectomy, cataract surgery, hysterectomy, tonsillectomy Reported Medications Turmeric (Turmeric Root Extract) 500 Mg Capsule 1 Cap PO DAILY Calcium 600 with Vitamin D (Calcium Carbonate-Cholecalciferol) 600-400 mg-Unit Tab 2 Tab PO HS Tramadol-Acetaminophen 37.5-325 mg Tab 1 Tab PO BID Daily Multivitamin with Iron (Multivitamin with Iron) 1 Each Tablet 1 Tab PO DAILY Atorvastatin (Atorvastatin Calcium) 40 Mg Tab 40 Mg PO HS Atenolol 25 Mg Tab 25 Mg PO BID Aspirin 81 Mg Chew 81 Mg CHEW DAILY Alprazolam 0.25 Mg Tab 0.25 Mg PO Q8H PRN Fosamax (Alendronate Sodium) 70 Mg Tab 70 Mg PO Q7D Warfarin 2 Mg Tab 2 Mg PO DAILY Allergies: Coded Allergies: No Known Allergies (Verified Allergy, Unknown, 03/27/17) Family History No family history of Alzheimer's or Parkinson's disease. Social History Patient denies using tobacco, alcohol, illicit drugs. Physical Exam Vital Signs Vital Signs Date Time Temp Pulse Resp B/P (MAP) Pulse Ox O2 Delivery O2 Flow Rate FiO2 03/28/17 08:00 98.4 68 29 96 03/28/17 07:10 97.5 60 29 121/69 (86) 95 03/28/17 04:00 68 03/28/17 04:00 98.6 70 24 129/66 (87) 94 03/28/17 03:10 68 17 107/67 (80) 94 03/28/17 02:10 70 28 117/63 (81) 96 03/28/17 01:10 66 14 111/57 (75) 96 03/28/17 00:10 68 03/28/17 00:10 68 27 126/78 (94) 95 03/27/17 23:21 72 03/27/17 23:21 98.7 72 20 158/77 (104) 94 03/27/17 23:06 03/27/17 23:05 78 16 142/69 (93) 98 Nasal Cannula 03/27/17 22:15 98 Nasal Cannula 2.00 03/27/17 21:15 75 18 138/75 (96) 98 Nasal Cannula 03/27/17 20:40 98 Room Air 4.00 03/27/17 20:40 96 Nasal Cannula 2.00 03/27/17 20:20 98.3 72 24 170/82 (111) 93 Physical Exam GENERAL: This is a well-nourished, well-developed patient, in no apparent distress. Patient is right-handed SKIN: No rashes, ecchymoses or lesions. Warm and dry. HEAD: Atraumatic. Normocephalic. No temporal or scalp tenderness. EYES: Pupils equal round and reactive. No injection or drainage. ENT: Nose without bleeding, purulent drainage or septal hematoma. Airway patent. NECK: Trachea midline. No lymphadenopathy. Supple, nontender, no meningeal signs. CARDIOVASCULAR: Regular rate and rhythm without murmurs, gallops, or rubs. No JVD. RESPIRATORY: Clear to auscultation. Breath sounds equal bilaterally. No wheezes , rales, or rhonchi. GASTROINTESTINAL: Abdomen soft, non-tender, nondistended. No guarding. MUSCULOSKELETAL: Extremities without clubbing, cyanosis, or edema. NEUROLOGICAL: Awake and alert. Cranial nerves II through XII intact. No focal neurological deficits. Left upper extremity slightly weaker than right. Normal speech. Laboratory Laboratory Tests Test 03/27/17 20:44 03/27/17 20:55 03/28/17 06:10 White Blood Count 9.7 6.4 Red Blood Count 4.62 3.80 Hemoglobin 14.0 11.8 Hematocrit 43.7 35.8 Mean Corpuscular Volume 94.5 94.3 Mean Corpuscular Hemoglobin 30.2 31.1 Mean Corpuscular Hemoglobin Concent 31.9 33.0 Red Cell Distribution Width 14.6 14.2 Platelet Count 242 182 Mean Platelet Volume 9.4 9.0 Neutrophils (%) (Auto) 40.3 72.0 Lymphocytes (%) (Auto) 44.5 17.6 Monocytes (%) (Auto) 10.9 9.2 Eosinophils (%) (Auto) 2.4 0.6 Basophils (%) (Auto) 1.9 0.6 Neutrophils # (Auto) 3.9 4.7 Lymphocytes # (Auto) 4.3 1.1 Monocytes # (Auto) 1.1 0.6 Eosinophils # (Auto) 0.2 0.0 Basophils # (Auto) 0.2 0.0 CBC Comment DIFF FINAL DIFF FINAL Differential Comment Prothrombin Time 15.3 Prothromb Time International Ratio 1.5 Activated Partial Thromboplast Time 27.3 Blood Urea Nitrogen 28 19 Creatinine 1.30 0.81 Random Glucose 173 101 Total Protein 7.8 5.9 Albumin 4.3 3.3 Calcium Level 10.1 8.2 Magnesium Level 2.6 Alkaline Phosphatase 76 57 Aspartate Amino Transf (AST/SGOT) 40 24 Alanine Aminotransferase (ALT/SGPT) 28 19 Total Bilirubin 0.7 0.4 Sodium Level 141 141 Potassium Level 3.6 3.6 Chloride Level 103 107 Carbon Dioxide Level 16.5 26.3 Anion Gap 22 8 Estimat Glomerular Filtration Rate 39 68 Lactic Acid Level 9.5 Ammonia 54 Troponin I LESS THAN 0.02 Ethyl Alcohol Level LESS THAN 3 Urine Color YELLOW Urine Turbidity CLEAR Urine pH 5.5 Urine Specific [place] 1.026 Urine Protein TRACE Urine Glucose (UA) NEG Urine Ketones 15 Urine Occult Blood NEG Urine Nitrite NEG Urine Bilirubin NEG Urine Leukocyte Esterase NEG Urine RBC 0-3 Urine WBC 9-14 Urine WBC Clumps FEW Urine Squamous Epithelial Cells 6-8 Urine Calcium Oxalate Crystals FEW Urine Hyaline Casts 6-9 Phenytoin (Dilantin) Level 12.3 Date/Time Source Procedure Growth Status 03/27/17 20:58 Blood Peripheral Aerobic Blood Culture - Preliminary NO GROWTH IN 1 DAY Resulted 03/27/17 20:58 Blood Peripheral Anaerobic Blood Culture - Preliminary NO GROWTH IN 1 DAY Resulted 03/27/17 00:00 Urine Catheterized Urine Urine Culture Pending Received Result Diagram: 03/28/17 0610 03/28/17 0610 Imaging Last Impressions Head Magnetic Resonance Angiography 03/28/17 0000 Signed Impressions: Service Date/Time: Tuesday, March 28, 2017 11:45 - CONCLUSION: Moderate atherosclerotic vascular disease without occlusion.. Yifan Boyer MD FACR Carotid Artery Ultrasound 03/28/17 0000 Signed Impressions: Service Date/Time: Tuesday, March 28, 2017 12:19 - CONCLUSION: Negative for hemodynamically significant stenosis. Yifan Boyer MD FACR Brain MRI 03/28/17 0000 Signed Impressions: Service Date/Time: Tuesday, March 28, 2017 11:45 - CONCLUSION: Old ischemic changes, negative for acute process.. Yifan Boyer MD FACR Head CT 03/27/17 0000 Signed Impressions: Service Date/Time: Monday, March 27, 2017 20:24 - CONCLUSION: 1. Stable appearance to old left MCA infarctions. 2. No acute findings in the brain. 3. Stable left maxillary sinus disease. Dale Jacome MD Caprini VTE Risk Assessment Caprini VTE Risk Assessment: Mod/High Risk (score >= 2) Caprini Risk Assessment Model Point Value = 1 Point Value = 2 Point Value = 3 Point Value = 5 Age 41-60 Minor surgery BMI > 25 kg/m2 Swollen legs Varicose veins or History of unexplained or recurrent spontaneous Oral contraceptives or hormone replacement Sepsis (< 1 month) Serious lung disease, including pneumonia (< 1 month) Abnormal pulmonary function Acute myocardial infarction Congestive heart failure (< 1 month) History of inflammatory bowel disease Medical patient at bed rest Age 61-74 Arthroscopic surgery Major open surgery (> 45 min) Laparoscopic surgery (> 45 min) Malignancy Confined to bed (> 72 hours) Immobilizing plaster cast Central venous access Age >= 75 History of VTE Family history of VTE Factor V Leiden Prothrombin 04403C Lupus anticoagulant Anticardiolipin antibodies Elevated serum homocysteine Heparin-induced thrombocytopenia Other congenital or acquired thrombophilia Stroke (< 1 month) Elective arthroplasty Hip, pelvis, or leg fracture Acute spinal cord injury (< 1 month) Prophylaxis Regimen Total Risk Factor Score Risk Level Prophylaxis Regimen 0-1 Low Early ambulation 2 Moderate Order ONE of the following: *Sequential Compression Device (SCD) *Heparin 5000 units SQ BID 3-4 Higher Order ONE of the following medications: *Heparin 5000 units SQ TID *Enoxaparin/Lovenox 40 mg SQ daily (WT < 150 kg, CrCl > 30 mL/min) *Enoxaparin/Lovenox 30 mg SQ daily (WT < 150 kg, CrCl > 10-29 mL/min) *Enoxaparin/Lovenox 30 mg SQ BID (WT < 150 kg, CrCl > 30 mL/min) AND/OR *Sequential Compression Device (SCD) 5 or more Highest Order ONE of the following medications: *Heparin 5000 units SQ TID (Preferred with Epidurals) *Enoxaparin/Lovenox 40 mg SQ daily (WT < 150 kg, CrCl > 30 mL/min) *Enoxaparin/Lovenox 30 mg SQ daily (WT < 150 kg, CrCl > 10-29 mL/min) *Enoxaparin/Lovenox 30 mg SQ BID (WT < 150 kg, CrCl > 30 mL/min) AND *Sequential Compression Device (SCD) Assessment and Plan Problem List: (1) Coronary artery disease ICD Code: I25.10 - Atherosclerotic heart disease of [place] coronary artery without angina pectoris (2) New onset seizure ICD Code: R56.9 - Unspecified convulsions Status: Acute (3) History of CVA (cerebrovascular accident) ICD Code: Z86.73 - Personal history of transient ischemic attack (TIA), and cerebral infarction without residual deficits Status: Acute Assessment and Plan Ms. Garcia is a pleasant 81-year-old female with a history of CVA, coronary artery disease who presented to the emergency department due to new onset seizure activity. - New onset seizure activity - Neurology input appreciated. - EEG ordered. Tramadol discontinued. - Continue Dilantin 130mg Q8hrs. - Continue Warfarin. Will increase warfarin from 2mg to 3mg today. Check INR in the AM. - Continue Aspirin. Will advise patient to take Aspirin until INR is above 2.0. - Discussed with patient at length regarding Aspirin. Since she has no recent stent, it would be appropriate to discontinue aspirin. - Likely discharge home tomorrow AM. - History of CAD - History of CVA X 3. - Given patient's history of CVA and CAD, it would be reasonable to start patient on at least a moderate dose of Lipitor. - Will start Lipitor 20mg QHS. Full code. Warfarin. Glynn Ramirez DO Mar 28, 2017 11:10 am
--- NOTE | 2017-03-28 12:07 | RADRPT ---
EXAM DATE/TIME: 03/28/2017 11:45 [facility] COMPARISON: No previous studies available for comparison. INDICATIONS : Seizures. MEDICAL HISTORY : Renal insufficiency, chronic. Hypertension. SURGICAL HISTORY : Coronary artery stent. Tonsillectomy. ENCOUNTER: Initial ACUITY: 1 day PAIN SCORE: 0/10 LOCATION: cranial Please note a normal MRA of the brain does not entirely exclude the possibility of a small aneurysm, nor the possibility of distal intracranial vessel disease. TECHNIQUE: 3D time of flight MRA was performed. Source images, multiplanar STS MIP, and 3D volume MIP reconstru ctions were reviewed. FINDINGS: Moderate atherosclerotic vascular disease without major branch vessel occlusion or aneurysm. CONCLUSION: Moderate atherosclerotic vascular disease without occlusion.. Yifan Boyer MD FACR on March 28, 2017 at 12:04 Board Certified Radiologist. This report was verified electronically.
--- NOTE | 2017-03-28 13:05 | RADRPT ---
EXAM DATE/TIME: 03/28/2017 11:45 [facility] COMPARISON: No previous studies available for comparison. INDICATIONS : Seizures. MEDICAL HISTORY : Hypertension. Renal insufficiency, chronic. CVA. SURGICAL HISTORY : Coronary artery stent. Tonsillectomy. ENCOUNTER: Initial ACUITY: 1 day PAIN SCORE: 0/10 LOCATION: cranial TECHNIQUE: Multiplanar, multisequence MRI of the brain was performed without contrast. FINDINGS: Moderate motion artifact is present. Marked periventricular white matter changes are noted with old infarct in the left mid sylvian region and right cerebellar hemisphere. Ventricular size is appropriate There are no extra-axial fluid collection appreciated There is no parietal hemorrhage Posterior fossa ischemic changes are noted Left maxillary sinus disease is noted. CONCLUSION: Old ischemic changes, negative for acute process.. Yifan Boyer MD FACR on March 28, 2017 at 13:00 Board Certified Radiologist. This report was verified electronically.
--- NOTE | 2017-03-28 13:11 | RADRPT ---
EXAM DATE/TIME: 03/28/2017 12:19 [facility] COMPARISON: No previous studies available for comparison. INDICATIONS : Cerebrovascular accident. MEDICAL HISTORY : Hypercholesterolemia. CVA. Thyroid disease. Hypertension. CAD. COPD. CKD. SURGICAL HISTORY : Tonsillectomy. Hysterectomy. Tubal ligation. Cardiac stents. ENCOUNTER: Initial ACUITY: 1 day PAIN SCORE: 0/10 LOCATION: Bilateral neck PEAK SYSTOLIC VELOCITIES (cm/sec): ICA/CCA RATIO: Right: 0.7 Left: 0.8 ICA: Right: 69 Left: 65 CCA: Right: 77 Left: 81 ECA: Right: 82 Left: 61 VERTEBRAL: Right: 46 antegrade Left: 38 antegrade Elevated flow velocities and ICA/CCA ratios have been found to correlate with increased degrees of vessel stenosis, calculated as percentage of diameter relative to a normal segment of distal ICA/CCA FINDINGS: RIGHT CAROTID: No significant stenosis is visualized. The waveforms are within normal limits. LEFT CAROTID: No significant stenosis is visualized. The waveforms are within normal limits. VERTEBRAL ARTERIES: Antegrade flow is seen in both vertebral arteries. MISCELLANEOUS: None. CONCLUSION: Negative for hemodynamically significant stenosis. Yifan Boyer MD FACR on March 28, 2017 at 13:08 Board Certified Radiologist. This report was verified electronically.
[2017-03-28] MEDS: PHENYTOIN SODIUM 100 MG CAP PO SCH ×2 (13:57→21:20)
[2017-03-28] MEDS ORDERED: PHENYTOIN SODIUM 100 MG CAP PO SCH (14:00)
[2017-03-28] MEDS: PHENYTOIN SODIUM 30 MG CAP PO SCH ×2 (14:00→21:20)
[2017-03-28] MEDS ORDERED: WARFARIN SOD 5 MG TAB PO ONE (16:00)
[2017-03-28] MEDS ORDERED: WARFARIN SOD 3 MG TAB PO SCH (16:00)
[2017-03-28] MEDS ORDERED: ATORVASTATIN 20 MG TAB PO SCH (21:00)
[2017-03-28] MEDS ORDERED: cefTRIAXone INJ 1,000 MG in SODIUM CHLORIDE 0.9% INJ 100 ML IV SCH (22:00)
[2017-03-29] VITALS: BP 126/59; PULSE 65; RESP 18; TEMP 98; O2SAT 97
[2017-03-29] MEDS: PHENYTOIN SODIUM 100 MG CAP PO SCH (06:03)
[2017-03-29] MEDS: PHENYTOIN SODIUM 30 MG CAP PO SCH (06:03)
[2017-03-29 08:00] VITALS: BP 164/71; PULSE 68; RESP 18; TEMP 97.3; O2SAT 97
[2017-03-29] MEDS: SODIUM CHLORIDE 0.9% FLUSH 10 ML FLUSH IV FLUSH SCH (08:59)
[2017-03-29] MEDS: DOCUSATE SODIUM 50 MG/SENNA 8.6 MG TAB PO SCH (09:00)
[2017-03-29] MEDS ORDERED: AMLO5TAB2 PO (09:33)
[2017-03-29] MEDS ORDERED: DILA30CA PO (09:36)
[2017-03-29] MEDS ORDERED: DILA100C PO (09:36)
--- NOTE | 2017-03-29 09:37 | HHI.PR ---
Subjective Remarks Follow-up for seizure activity. Patient is currently doing well. No chest pain , shortness of breath, fever or chills. No seizure activities. Objective Vitals Vital Signs Date Time Temp Pulse Resp B/P (MAP) Pulse Ox O2 Delivery O2 Flow Rate FiO2 03/29/17 08:00 97.3 68 18 164/71 (102) 97 03/29/17 00:00 98.0 65 18 126/59 (81) 97 03/28/17 20:00 98.2 70 16 142/69 (93) 98 03/28/17 16:00 98.0 66 14 124/62 (82) 97 03/28/17 13:33 66 24 03/28/17 11:10 70 19 124/65 (84) 95 03/28/17 10:47 68 26 116/72 (87) 96 03/28/17 10:47 68 26 116/72 (87) 96 I/O 03/28/17 03/28/17 03/28/17 03/29/17 03/29/17 03/29/17 07:00 15:00 23:00 07:00 15:00 23:00 Intake Total 1000 ml Balance 1000 ml Intake IV Total 1000 ml # Voids 1 Result Diagram: 03/28/17 0610 03/28/17 0610 Imaging Last Impressions Head Magnetic Resonance Angiography 03/28/17 0000 Signed Impressions: Service Date/Time: Tuesday, March 28, 2017 11:45 - CONCLUSION: Moderate atherosclerotic vascular disease without occlusion.. Yifan Boyer MD FACR Carotid Artery Ultrasound 03/28/17 0000 Signed Impressions: Service Date/Time: Tuesday, March 28, 2017 12:19 - CONCLUSION: Negative for hemodynamically significant stenosis. Yifan Boyer MD FACR Brain MRI 03/28/17 0000 Signed Impressions: Service Date/Time: Tuesday, March 28, 2017 11:45 - CONCLUSION: Old ischemic changes, negative for acute process.. Yifan Boyer MD FACR Head CT 03/27/17 0000 Signed Impressions: Service Date/Time: Monday, March 27, 2017 20:24 - CONCLUSION: 1. Stable appearance to old left MCA infarctions. 2. No acute findings in the brain. 3. Stable left maxillary sinus disease. Dale Jacome MD Objective Remarks GENERAL: Alert, oriented 3, NAD. SKIN: Warm and dry. HEAD: Normocephalic. EYES: No scleral icterus. No injection or drainage. NECK: Supple, trachea midline. No JVD or lymphadenopathy. CARDIOVASCULAR: Regular rate and rhythm without murmurs, gallops, or rubs. RESPIRATORY: Breath sounds equal bilaterally. No accessory muscle use. GASTROINTESTINAL: Abdomen soft, non-tender, nondistended. MUSCULOSKELETAL: No cyanosis, or edema. BACK: Nontender without obvious deformity. No CVA tenderness. Procedures EEG Asymmetric left frontal central slowing with very mild sharp activity in that region, suggestive of structural lesion and possible nidus for epileptic activity. No active seizures. Clinical correlation. A/P Problem List: (1) Coronary artery disease ICD Code: I25.10 - Atherosclerotic heart disease of [place] coronary artery without angina pectoris (2) New onset seizure ICD Code: R56.9 - Unspecified convulsions Status: Acute (3) History of CVA (cerebrovascular accident) ICD Code: Z86.73 - Personal history of transient ischemic attack (TIA), and cerebral infarction without residual deficits Status: Acute Assessment and Plan Ms. Garcia is a pleasant 81-year-old female with a history of CVA, coronary artery disease who presented to the emergency department due to new onset seizure activity. - New onset seizure activity - Neurology input appreciated. - EEG unremarkable for acute seizure. Tramadol discontinued. - Continue Dilantin 130mg Q8hrs. - Continue Warfarin. INR today 2.0. Continue Warfarin upon discharge. Check INR in 3 days. - Discontinue Aspirin. - History of CAD - History of CVA X 3. - Continue Lipitor. Full code. Warfarin. Discharge patient to home Condition on discharge: Improved Regular Diet as tolerated Ad Feli activity Rx written: Amlodipine 5 mg daily Phenytoin total 130 mg every 8 hours. Follow-up with primary care physician within one week. PT/INR in 3-5 days. Glynn Ramirez DO Mar 29, 2017 9:37 am
--- NOTE | 2017-03-29 10:46 | MG ---
cc: RELL MEZA MD Sex: F DATE OF STUDY: 03/28/2017 EEG: [facility] [id number]. DATE OF : 1935 INTRODUCTION: An 81-year-old female with a history of seizure, mild asymmetric left frontal central slowing compared to the right side. DESCRIPTION: Sleep state began at the beginning of the recording, followed by wakeful state. Posterior rhythm demonstrating 7-8 Hz activity 20-50 microvolts without movement artifact. Good EEG variability reactivity. Small sharp waves, phase reversal T3 epoch 58. Reduced driving with photic stimulation. High amplitude theta, alpha left side, burst 2-3 Hz delta activity occurring, K complex type configuration. Single lead EKG showing sinus rhythm. INTERPRETATION Asymmetric left frontal central slowing with very mild sharp activity in that region, suggestive of structural lesion and possible nidus for epileptic activity. No active seizures. Clinical correlation. Rell Meza MD MG/[facility] /8:53 AM /10:25 AM
[2017-03-29] MEDS ORDERED: WARFARIN SOD 2 MG TAB PO SCH (16:00)
--- NOTE | 2017-03-30 09:43 | EKG ---
Date Performed: 03/27/2017 Time Performed: 20:41:37 PTAGE: 81 years EKG: Sinus rhythm WITH SINUS ARRHYTHMIA MARKED LEFT AXIS DEVIATION INCOMPLETE RIGHT BUNDLE BRANCH BLOCK MINIMAL VOLTAG E CRITERIA FOR LVH POSSIBLE LATERAL MYOCARDIAL INFARCTION ABNORMAL ECG PREVIOUS TRACING : 01/24/2017 21.26 Compared to prior tracing no significant change DOCTOR: Speedy Lee Interpretating Date/Time 03/30/2017 09:43:36
== END 2017-03-29 10:32 | disposition home or self-care (01) ==
LOC: PHED 20:15 → PHEDA 22:03 → PHICU 23:30 → PH3A 03-28 15:24
PROVIDERS: ADMIT Hospitalist; ATTEND Hospitalist
DX: R56.9 Unspecified convulsions (principal); I12.9 Hypertensive chronic kidney disease with stage 1 through stage 4 chronic kidney disease, or unspecified chronic kidney disease; N18.3 Chronic kidney disease, stage 3 (moderate); E11.22 Type 2 diabetes mellitus with diabetic chronic kidney disease; E78.5 Hyperlipidemia, unspecified; I25.10 Atherosclerotic heart disease of native coronary artery without angina pectoris; Z86.73 Personal history of transient ischemic attack (TIA), and cerebral infarction without residual deficits; Z79.82 Long term (current) use of aspirin; N39.0 Urinary tract infection, site not specified; J32.0 Chronic maxillary sinusitis; K21.9 Gastro-esophageal reflux disease without esophagitis; M81.0 Age-related osteoporosis without current pathological fracture; Z79.01 Long term (current) use of anticoagulants; Z90.710 Acquired absence of both cervix and uterus; Z95.5 Presence of coronary angioplasty implant and graft
CPT/HCPCS: 70450; 70544; 70551; 80053; 80185; 80307; 81001; 82140; 83605; 83735; 84484; 85025; 85610; 85730; 86850; 86900; 86901; 87040; 87086; 93005; 93880; 95819; 96361; 96365; 96374; 96375; 97161; 99291; G0378; G8987; G8988; J0696; J7030; Q2009

== ENCOUNTER → 2017-07-21 | Outpatient (CLI) | payer OTHER ==
[~2017-07-21] MED LIST changes: +AMLO5TAB2 PO; -ASPI-516 CHEW; -ATEN25TA PO; +DILA100C PO; +DILA30CA PO; -DOXY100C PO; -TRAM-388 PO
--- NOTE | 2017-07-21 10:59 | RADRPT ---
EXAM DATE/TIME: 07/21/2017 00:00 [facility] COMPARISON: No previous studies available for comparison. INDICATIONS : Dysphagia. Patient states she has trouble with food, not liquids. After patient eats, she coughs appr ox 15 minutes later. FLUORO TIME: 1.1 minutes IMAGE COUNT: 0 CONTRAST: Dose as prescribed by speech pathologist. MEDICAL HISTORY : Stroke. Stroke 7 years ago. Hypertension. Renal insufficiency, chronic. CVA.Seizure in 03/2017. SURGICAL HISTORY : Tonsillectomy. Coronary artery stent. ENCOUNTER: Initial ACUITY: 7 - 11 months PAIN SCORE: 0/10 LOCATION: Esophagus/throat. FINDINGS: A modified barium swallow was performed with speech pathology. Patient was given a variety of liquids to swallow. Swallowing mechanism is intact. There is no evidence of aspiration. For a full detailed report, see report by the speech pathologist. CONCLUSION: Normal swallowing mechanism without evidence of aspiration. Bhanu Summers MD on July 21, 2017 at 10:57 Board Certified Radiologist. This report was verified electronically.
== END ==
LOC: HRAD 09:53
PROVIDERS: ATTEND Family Medicine
DX: R13.10 Dysphagia, unspecified (principal)
CPT/HCPCS: 74230; 92611; G8996; G8997; G8998